=== PATIENT | male | born 1970 | race Caucasian/White ===

== ENCOUNTER 2017-10-09 10:58 | Outpatient (CLI) | payer OTHER ==
--- NOTE | 2017-10-09 12:07 | Ultrasound Report ---
ULTRASOUND LEFT INGUINAL CANAL: 10/09/2017 CLINICAL INDICATION: Pain, swelling. TECHNIQUE: Real-time scanning was performed with sales representative printing paper static images obtained. FINDINGS: Ultrasound of the left inguinal canal demonstrates a left inguinal hernia present, containing fat. The hernia neck measures approximately 5 mm. No bowel herniation is identified at rest or with Valsalva. IMPRESSION: LEFT INGUINAL HERNIA, CONTAINING FAT. TD: 10/09/2017 12:06
== END 2017-10-09 10:59 | disposition home or self-care (01) ==
LOC: DI 10:58
PROVIDERS: ATTEND Nurse Practitioner Family
DX: K40.90 Unilateral inguinal hernia, without obstruction or gangrene, not specified as recurrent (principal)
CPT/HCPCS: 76857

== ENCOUNTER 2017-11-10 07:17 | Day surgery (SDC) | payer OTHER ==
[2017-11-10] MEDS ORDERED: ceFAZolin 2 GM/50 ML 2 GM/50 ML BAG IV ONE (07:43)
[2017-11-10] MEDS ORDERED: BUPIVACAINE 0.5% PF 30 ML VIAL ONE (07:45)
[2017-11-10] MEDS ORDERED: LACTATED RINGERS 1,000 ML IV ONE (08:10)
[2017-11-10] MEDS ORDERED: SODIUM CHLORIDE 0.9% 10 ML ONE (09:50)
[2017-11-10] MEDS ORDERED: ceFAZolin 1 GM VIAL ONE (09:50)
[2017-11-10] MEDS ORDERED: BUPIVACAINE 0.5%-EPI 1:200000 PF 30 ML VIAL ONE (09:52)
[2017-11-10] MEDS ORDERED: BUPIVACAINE 0.5%-EPI 1:200000 PF 10 ML VIAL ONE (09:52)
[2017-11-10] MEDS ORDERED: LIDOCAINE 1% 50 ML MDV ONE (09:53)
[2017-11-10] MEDS ORDERED: BUPIVACAINE 0.5%-EPI 1:200000 PF 30 ML VIAL SUBQ ONE (10:13)
[2017-11-10] MEDS ORDERED: LIDOCAINE 1% 50 ML MDV SUBQ ONE (10:13)
[2017-11-10] MEDS ORDERED: ceFAZolin 1 GM VIAL IR ONE (10:31)
[2017-11-10] MEDS ORDERED: ONDANSETRON 4 MG/2 ML VIAL IVP ONE (11:22)
[2017-11-10] MEDS ORDERED: PROPOFOL 200 MG/20 ML VIAL IVP ONE (11:22)
[2017-11-10] MEDS ORDERED: MIDAZOLAM 2 MG/2 ML VIAL IVP ONE (11:22)
[2017-11-10] MEDS ORDERED: KETOROLAC 30 MG/ML VIAL IVP ONE (11:22)
[2017-11-10] MEDS ORDERED: fentaNYL 100 MCG/2 ML VIAL IVP ONE (11:22)
--- NOTE | 2017-11-10 11:47 | OPERATIVE REPORT ---
DATE OF SERVICE: 11/10/2017 Physician: Sergio Puckett MD PREOPERATIVE DIAGNOSIS: Symptomatic left inguinal hernia. POSTOPERATIVE DIAGNOSIS: Symptomatic sliding indirect left inguinal hernia. PROCEDURE PERFORMED: Open repair of sliding indirect left inguinal hernia with polypropylene mesh. ANESTHESIA: Local plus monitored anesthesia care. SURGEON: Sergio Puckett MD ESTIMATED BLOOD LOSS: Minimal. COMPLICATIONS: None. DRAINS: None. FINDINGS: A small to moderate sized indirect sliding left inguinal hernia was present. The sliding component appeared to be bladder wall. There was no evidence of direct or femoral hernia. INDICATIONS: The patient is a 47-year-old gentleman with a recent onset of a painful reducible left groin bulge. Examination revealed a left inguinal hernia. He was advised to undergo repair using an open technique under local anesthesia with sedation. TECHNIQUE: After informed consent, the patient was taken to the operating room where he was sedated and monitored. Preoperative preparation included application of sequential calf compression device, administration of 2 grams cefazolin intravenously within the hour of the incision. His left groin was clipped prepared with ChloraPrep solution following which a left groin block was instituted using a 50:50 combination of 1% lidocaine plain and 0.5% Marcaine with epinephrine, total of 30 mL of the mixture was used. His left groin was reprepared with ChloraPrep solution and draped in the usual sterile fashion. A transverse incision was made in the skin lines of the left groin beginning above the pubic tubercle and extending laterally for 5 cm. Hemostasis was achieved with electrocautery and 2-0 Vicryl ties. The incision was carried down through subcutaneous tissues until the external oblique aponeurosis was identified, and was incised along the lines of its fibers in such a manner as to open the external ring and expose the internal ring. The spermatic cord was mobilized and encircled with a Katherine drain. The ilioinguinal nerve was divided to avoid injury and entrapment. The cord was dissected, isolating an indirect hernia sac, which was dissected free from surrounding cord structures to the level of the internal ring. It was seen to have a sliding component. The sac was trimmed away from the sliding component, which was then reduced and the resulting peritoneal defect was closed with a continuous 2-0 silk suture, after a finger had been inserted into the peritoneal cavity and a search for direct and femoral hernia was made and none was identified. After the high ligation had been performed, the cord was skeletonized and after hemostasis was assured, the wound was irrigated with antibiotic solution containing 1 gram of cefazolin per liter. A precut slotted polypropylene mesh, which had been soaked in the antibiotic solution, was placed over the inguinal floor and secured in place circumferentially with continuous 2-0 Prolene sutures. Care was taken to avoid excessive tightening of the mesh around the cord at the level of the internal ring. Again, after hemostasis had been assured, the wound was irrigated with antibiotic solution following which wound closure was accomplished in layers using continuous 2-0 Vicryl to reapproximate the external oblique aponeurosis overlying the cord, followed by continuous 3-0 Vicryl for Stuart fascia, followed by 4-0 Monocryl and Dermabond. The procedure was terminated and the patient transferred out of the operating room in satisfactory condition. Sponge and needle counts were correct. No drains were used. TD: 11/10/2017 11:47
[2017-11-10] MEDS ORDERED: oxyCOD/ACETAMIN 5 MG/325 MG TABLET PO ONE (12:38)
[2017-11-10 12:39] VITALS: BP 128/88
== END 2017-11-10 07:18 | disposition home or self-care (01) ==
LOC: SDS 07:17
PROVIDERS: ATTEND Internal Medicine Gastroenterology
PROC: 0YU60JZ Supplement Left Inguinal Region with Synthetic Substitute, Open Approach (ICD-10-PCS; principal; 2017-11-10 08:30)
DX: K40.90 Unilateral inguinal hernia, without obstruction or gangrene, not specified as recurrent (principal)
CPT/HCPCS: 49525; A9270; C1781; J0690; J7120

== ENCOUNTER 2020-07-05 08:13 | Outpatient (CLI) | payer OTHER ==
--- NOTE | 2020-07-05 17:33 | MRI Report ---
PROCEDURE: Lumbar Spine W/O INDICATIONS: LOW BACK PAIN, SEVERE DEGENERATIVE CHANGES TECHNIQUE: Noncontrast sagittal T1 spin echo and T2 fast echo, sagittal STIR, axial T1 and T2 fast spin echo thr ough the lumbar spine. In cases with scoliosis, additional coronal T2 fast spin echo may be performe d. COMPARISON: None. FINDINGS: Image quality: Excellent. Alignment and Curvature: There is normal bony alignment. Bone Marrow: Reactive endplate changes noted adjacent to the L1-L2 disc. No acute vertebral body comp ression fractures. Spinal Cord: Conus medullaris terminates at the L1 level. Visualized cord demonstrates normal signa l and size. Paraspinous Soft Tissues: No paravertebral masses. T12-L1: Loss of disc signal. Mild, diffuse disc bulge. No central stenosis. No neural foraminal narr owing. No neural compression. L1-L2: Loss of disc signal and height. Mild, diffuse disc bulge. Mild narrowing of the central can al. Mild bilateral neural foraminal narrowing. No neural compression. L2-L3: Loss of disc signal. Mild, diffuse disc bulge. Mild narrowing of the central canal. Mild bi lateral neural foraminal narrowing. No neural compression. L3-L4: Loss of disc signal. Mild, diffuse disc bulge. Mild bilateral facet hypertrophy. Mild narrow ing of the central canal. Mild bilateral neural foraminal narrowing. No neural compression. L4-L5: Loss of disc signal. Mild, diffuse disc bulge. Mild bilateral facet hypertrophy. Mild to mod erate narrowing of the central canal. Mild to moderate bilateral neural foraminal narrowing. No neura l compression. L5-S1: Loss of disc signal. Mild bilateral facet hypertrophy. No central stenosis. No neural forami nal narrowing. No neural compression. IMPRESSION: 1. Multilevel degenerative disc disease. 2. Multilevel facet arthropathy. 3. Mild to moderate L4-L5 central canal narrowing. Mild L1-L2, L2-L3 and L3-L4 central canal narrowin g. 4. Mild to moderate bilateral L4-L5 neural foraminal narrowing. Mild bilateral L1-L2, L2-L3 and L3-L4 neural foraminal narrowing. 5. No neural compression. Reviewed by: Ivis Valle MD, PhD on 07/05/2020 5:32 PM PST Approved by: Ivis Valle MD, PhD on 07/05/2020 5:32 PM PST Station ID: [id number]
== END 2020-07-05 08:14 | disposition home or self-care (01) ==
LOC: DI 08:13
PROVIDERS: ATTEND Nurse Practitioner Family
DX: M51.36 Other intervertebral disc degeneration, lumbar region (principal); M48.061 Spinal stenosis, lumbar region without neurogenic claudication
CPT/HCPCS: 72148

== ENCOUNTER 2020-11-08 12:37 | Outpatient (CLI) | payer OTHER | END 2020-11-08 12:38 | disposition home or self-care (01) | LOC: COV 12:37 | PROVIDERS: ATTEND Surgery | DX: Z01.812 Encounter for preprocedural laboratory examination (principal); R10.13 Epigastric pain; Z86.010 Personal history of colon polyps; Z12.11 Encounter for screening for malignant neoplasm of colon; Z92.83 Personal history of failed moderate sedation; Z20.822 Contact with and (suspected) exposure to COVID-19 ==

== ENCOUNTER 2020-11-14 08:51 | Day surgery (SDC) | payer OTHER ==
[2020-11-14] MEDS ORDERED: LACTATED RINGERS 1,000 ML IV ONE ×2 (08:58→13:42)
--- NOTE | 2020-11-14 09:23 | ANESTHESIA ---
Pre-Anesthesia VS, & Labs - Diagnosis dyspepsia, screening, Hx polyps - Procedure EGD, Colonoscopy Vital Signs: Temp Pulse Resp BP Pulse Ox 36.3 C L 76 16 124/96 H 96 11/14/20 08:58 11/14/20 08:58 11/14/20 08:58 11/14/20 08:58 11/14/20 08:58 Height: 5 ft 8 in Weight (kg): 87 kg Body Mass Index: 29.1 BMI Classification: Overweight - NPO >8 hours - Lab Results Lab results reviewed: Yes Home Medications and Allergies Home Medications: Ambulatory Orders Acetaminophen [Tylenol] 650 mg PO Q6H PRN 11/13/20 Diclofenac Sodium 25 mg PO 11/13/20 Omeprazole Magnesium [Prilosec] 10 mg PO 11/13/20 Acetaminophen [Tylenol] 650 mg PO Q6H PRN 11/13/20 Diclofenac Sodium 25 mg PO 11/13/20 Omeprazole Magnesium [Prilosec] 10 mg PO 11/13/20 Allergies/Adverse Reactions: Allergies Allergy/AdvReac Type Severity Reaction Status Date / Time No Known Drug Allergies Allergy Verified 11/05/17 10:32 Anes History & Medical History - Anesthetic History Anesthesia Complications: reports: No previous complications Family history of Anesthesia Complications: Denies Family history of Malignant Hyperthermia: Denies - Medical History Cardiovascular: reports: None Pulmonary: reports: None Gastrointestinal: reports: GERD, Other Urinary: reports: None Musculoskeletal: reports: None Endocrine/Autoimmune: reports: None Skin: reports: None - Surgical History General: reports: Other Exam General: Alert, Oriented x3, Cooperative, No acute distress Dental: WNL Mouth Openin Fingerbreadth Neck Mobility: Normal Mallampati classification: I Respiratory: Lungs clear, Normal breath sounds, No respiratory distress, No accessory muscle use Cardiovascular: Regular rate, Normal S1, Normal S2, No murmurs Plan Anesthesia Type: General, Total IV Consent for Procedure(s) Verified and Reviewed: Yes Code Status: Attempt Resuscitation ASA classification: 1-Healthy patient Is this case an emergency?: No
[2020-11-14] MEDS ORDERED: PROPOFOL 1000 MG/100 ML 1,000 MG/100 ML BOTTLE IV ONE (11:48)
[2020-11-14] MEDS ORDERED: LIDOCAINE-MPF 2% 5 ML VIAL ONE (11:48)
[2020-11-14] MEDS ORDERED: fentaNYL 100 MCG/2 ML VIAL ONE (11:51)
[2020-11-14] MEDS ORDERED: PROPOFOL 200 MG/20 ML VIAL IVP ONE (13:02)
[2020-11-14] MEDS ORDERED: LACTATED RINGERS 100 ML IV ONE (13:08)
[2020-11-14] MEDS: fentaNYL 100 MCG/2 ML VIAL ONE ×2 (13:25→13:35)
[2020-11-14 13:40] LABS: HCT - HEMATOCRIT 46.5 % (42.0-52.0); HGB - HEMOGLOBIN 15.5 g/dL (14.0-18.0); MEAN CORPUSCULAR HEMOGLOBIN 31.2 pg (27.0-31.0); MEAN CORPUSCULAR HGB CONC 33.3 g/dL (32.0-36.0); MEAN CORPUSCULAR VOLUME 93.6 fL (80.0-94.0); MEAN PLATELET VOLUME 10.2 fL (7.4-11.4); RED BLOOD COUNT 4.97 10^6/uL (4.70-6.10); RED CELL DISTRIBUTION WIDTH 13.3 % (12.0-15.0); WHITE BLOOD COUNT 10.2 x10^3/uL (4.8-10.8)
--- NOTE | 2020-11-14 13:46 | XRAY Report ---
PROCEDURE: Chest 1 View X-Ray INDICATIONS: chest pain TECHNIQUE: One view of the chest was acquired. COMPARISON: None FINDINGS: Surgical changes and devices: None. Lungs and pleura: No pleural effusions or pneumothorax. Lungs are clear. Mediastinum: Mediastinal contours appear normal. Heart size is enlarged. Bones and chest wall: No suspicious bony lesions. Overlying soft tissues appear unremarkable. IMPRESSION: No acute pulmonary process. Reviewed by: Tricia Florez MD on 11/14/2020 12:45 PM AKDT Approved by: Tricia Florez MD on 11/14/2020 12:45 PM AKDT Station ID: [id number]
[2020-11-14] MEDS ORDERED: fentaNYL 100 MCG/2 ML VIAL IVP PRN (13:47)
[2020-11-14 13:54] LABS: ALBUMIN 4.4 g/dL (3.2-5.5); ALBUMIN/GLOBULIN RATIO 1.6 (1.0-2.2); BILIRUBIN,TOTAL 1.3 mg/dL (0.2-1.0); CALCIUM 9.2 mg/dL (8.5-10.3); TOTAL PROTEIN 7.2 g/dL (6.7-8.2)
[2020-11-14] MEDS ORDERED: SUCRALFATE 1 GM/10 ML UDC PO ONE (14:00)
[2020-11-14 14:01] LABS: CREATINE KINASE MB 5.2 ng/mL (0.6-6.3)
[2020-11-14 14:03] LABS: TROPONIN I HIGH SENSITIVITY 3.7 ng/L (2.3-19.7)
--- NOTE | 2020-11-14 14:25 | PROVIDER PROGRESS NOTE ---
Progress Note 50-year-old male status post upper and lower endoscopy with upper endoscopy findings as per below. Reporting post procedure chest pain with inspiration. Evaluated by me in PACU. Ordered EKG, chest x-ray, CBC, CMP, and acute cardiac panel. Also reporting some dyspnea however satting 100% on room air. Patient was dosed with Carafate as well as fentanyl with overall improvement in constellation of symptoms.. Upper endoscopy findings: 1. Pylorus was noted for stenosis. Cannot be traversed with upper endoscope. Pdokpyz-pak-jzrpw dilator with guidewire achieved for dilation to 13 mm without any complication. Easily traversed thereafter. 1a. Pylorus intubated achieved second portion of duodenum. No duodenitis at the second portion. Random biopsies obtained. Cold forceps. Hemostatic. 2. Patient was notable for a small area of ulceration and change in the duodenum. This area was multiply biopsied cold forcep. Cold forcep multiple. Focus biopsied. Hemostatic. 3. Antrum was noted for some antritis. Biopsied. Cold forcep. Hemostatic 4. Patient was notable for at least 50 gastric polyps. Unable to remove all of these in 1 sitting. Patient will need interval upper endoscopy to address these specifically with an appropriate amount of time. Will await pathology. 4a. All of these that were greater than 1 cm were performed for hot snare polypectomy and the majority of which were retrieved were possible. Cold forceps. Hemostatic. 4. Retroflexion with no significant hiatal hernia. 5. GE junction without any significant inflammatory changes. Biopsied. Cold forceps. Hemostatic. 6. Esophagus with no stricture, stenosis, or inflammation PHYSICAL EXAM General Appearance: positive: No acute distress Eyes Bilateral: positive: Normal inspection ENT: positive: ENT inspection nml Neck: positive: Nml inspection Respiratory: positive: Chest non-tender, No respiratory distress, Breath sounds nml. negative: Wheezes, Rales, Rhonchi Cardiovascular: positive: Regular rate & rhythm Abdomen: positive: No distention, Other. negative: Guarding, Rebound Extremities: positive: Non-tender, Full ROM, Nml appearance Neurologic/Psychiatric: positive: Oriented x3, CN's nml (2-12) Results Chest x-ray without any acute pulmonary process. Normal white count H&H stable. Remainder of labs including acute cardiac panel all within normal limits including troponin. EKG with no ST changes or other worrisome features. Assessment and plan: By report the patient was feeling improved per the nurse. He had received 2 doses of fentanyl as well as a dose of Carafate. Before I had a chance to reevaluate the patient following additional colonoscopies/endoscopies patient had already been discharged. There was no concern for perforation, acute coronary syndrome, or other respiratory process. Moreover there was no concern for complication as it relates to upper and lower endoscopy, vis a vis perforation. Notably the lower endoscopy was characteristic of only random biopsies with no large polyps. Plan to order Carafate and acid suppression therapy with PPI through [facility]. I do suspect the patient's early satiety and and gastric distention with eating is a consequence of pyloric stenosis and hopefully this will significantly improve with the patient's resultant dilation today.
--- NOTE | 2020-11-14 14:33 | ANESTHESIA POST OP EVALUATION ---
Anesthesia Post Eval - Post Anesthesia Eval Vitals: Last Vital Signs Temp 36.1 C L 11/14/20 14:02 Pulse 16 L 11/14/20 14:02 Resp 16 11/14/20 14:02 BP 149/90 H 11/14/20 14:02 Pulse Ox 97 11/14/20 14:02 CV Function Including HR & BP: Stable Pain Control: Satisfactory Nausea & Vomiting: Negative Mental Status: Baseline Respiratory Status: Airway Patent Hydration Status: Satisfactory Anesthesia Complications: None - Other Details/Therapies Other Details/Therapies: Immediately post procedure. Patient experiencing chest pain. Dr. Cevallos at bedside. CMP, CBC, Cardiac enzymes, EKG and CXR ordered.
[2020-11-14 14:53] VITALS: BP 148/87
== END 2020-11-14 08:52 | disposition home or self-care (01) ==
LOC: SDS 08:51
PROVIDERS: ATTEND Surgery
PROC: 0DBP8ZX Excision of Rectum, Via Natural or Artificial Opening Endoscopic, Diagnostic (ICD-10-PCS; 2020-11-14)
PROC: 0DB98ZX Excision of Duodenum, Via Natural or Artificial Opening Endoscopic, Diagnostic (ICD-10-PCS; 2020-11-14)
PROC: 0DB78ZX Excision of Stomach, Pylorus, Via Natural or Artificial Opening Endoscopic, Diagnostic (ICD-10-PCS; 2020-11-14)
PROC: 0DB48ZX Excision of Esophagogastric Junction, Via Natural or Artificial Opening Endoscopic, Diagnostic (ICD-10-PCS; 2020-11-14)
PROC: 0D778ZZ Dilation of Stomach, Pylorus, Via Natural or Artificial Opening Endoscopic (ICD-10-PCS; 2020-11-14)
PROC: 0DB68ZZ Excision of Stomach, Via Natural or Artificial Opening Endoscopic (ICD-10-PCS; 2020-11-14)
PROC: 0DBB8ZX Excision of Ileum, Via Natural or Artificial Opening Endoscopic, Diagnostic (ICD-10-PCS; principal; 2020-11-14 10:00)
PROC: 0DBE8ZX Excision of Large Intestine, Via Natural or Artificial Opening Endoscopic, Diagnostic (ICD-10-PCS; 2020-11-14 10:00)
DX: Z12.11 Encounter for screening for malignant neoplasm of colon (principal); K21.9 Gastro-esophageal reflux disease without esophagitis; R14.0 Abdominal distension (gaseous); K64.8 Other hemorrhoids; K44.9 Diaphragmatic hernia without obstruction or gangrene; K26.9 Duodenal ulcer, unspecified as acute or chronic, without hemorrhage or perforation; K31.7 Polyp of stomach and duodenum; K31.1 Adult hypertrophic pyloric stenosis; R68.81 Early satiety; K29.60 Other gastritis without bleeding; R07.1 Chest pain on breathing; Z86.010 Personal history of colon polyps; Z92.83 Personal history of failed moderate sedation; R10.13 Epigastric pain; E66.3 Overweight; Z68.29 Body mass index [BMI] 29.0-29.9, adult
CPT/HCPCS: 43239; 43245; 43251; 45380; 71045; 80053; 82550; 82553; 84484; 85027; 93005; A9270; J7120

== ENCOUNTER 2020-11-14 16:34 | Inpatient (IN) | payer OTHER ==
[2020-11-14 17:17] LABS: BASOPHILS % (AUTO) 0.3 %; EOSINOPHILS % (AUTO) 0.3 %; HCT - HEMATOCRIT 47.5 % (42.0-52.0); HGB - HEMOGLOBIN 15.9 g/dL (14.0-18.0); LYMPHOCYTES # (AUTO) 0.9 10^3/uL (1.5-3.5); LYMPHOCYTES % (AUTO) 10.1 %; MEAN CORPUSCULAR HEMOGLOBIN 31.3 pg (27.0-31.0); MEAN CORPUSCULAR HGB CONC 33.5 g/dL (32.0-36.0); MEAN CORPUSCULAR VOLUME 93.5 fL (80.0-94.0); MEAN PLATELET VOLUME 9.9 fL (7.4-11.4); MONOCYTES # (AUTO) 0.4 10^3/uL (0.0-1.0); MONOCYTES % (AUTO) 4.1 %; NEUTROPHILS # (AUTO) 7.8 10^3/uL (1.5-6.6); PLT - PLATELET COUNT 222 10^3/uL (130-450); RED BLOOD COUNT 5.08 10^6/uL (4.70-6.10); RED CELL DISTRIBUTION WIDTH 13.2 % (12.0-15.0); WHITE BLOOD COUNT 9.2 x10^3/uL (4.8-10.8)
[2020-11-14 17:33] LABS: ALBUMIN 4.5 g/dL (3.2-5.5); ALBUMIN/GLOBULIN RATIO 1.9 (1.0-2.2); BILIRUBIN,TOTAL 1.4 mg/dL (0.2-1.0); CALCIUM 9.1 mg/dL (8.5-10.3); TOTAL PROTEIN 6.9 g/dL (6.7-8.2)
[2020-11-14 17:57] LABS: BASOPHILS # (AUTO) 0.1 10^3/uL (0.0-0.1); BASOPHILS % (AUTO) 0.6 %; EOSINOPHILS % (AUTO) 0.3 %; HCT - HEMATOCRIT 45.7 % (42.0-52.0); HGB - HEMOGLOBIN 15.1 g/dL (14.0-18.0); LYMPHOCYTES # (AUTO) 0.8 10^3/uL (1.5-3.5); LYMPHOCYTES % (AUTO) 8.5 %; MEAN CORPUSCULAR HEMOGLOBIN 30.9 pg (27.0-31.0); MEAN CORPUSCULAR VOLUME 93.6 fL (80.0-94.0); MEAN PLATELET VOLUME 9.8 fL (7.4-11.4); MONOCYTES # (AUTO) 0.5 10^3/uL (0.0-1.0); MONOCYTES % (AUTO) 5.9 %; NEUTROPHILS # (AUTO) 7.5 10^3/uL (1.5-6.6); NEUTROPHILS % (AUTO) 84.5 %; PLT - PLATELET COUNT 199 10^3/uL (130-450); RED BLOOD COUNT 4.88 10^6/uL (4.70-6.10); RED CELL DISTRIBUTION WIDTH 13.3 % (12.0-15.0); WHITE BLOOD COUNT 8.8 x10^3/uL (4.8-10.8)
[2020-11-14 18:11] LABS: ALBUMIN 4.2 g/dL (3.2-5.5); ALBUMIN/GLOBULIN RATIO 1.6 (1.0-2.2); BILIRUBIN,TOTAL 1.5 mg/dL (0.2-1.0); CALCIUM 8.9 mg/dL (8.5-10.3); CREATININE 1.1 mg/dL (0.6-1.2); POTASSIUM 3.8 mmol/L (3.5-5.0); TOTAL PROTEIN 6.8 g/dL (6.7-8.2)
--- NOTE | 2020-11-14 18:20 | XRAY Report ---
PROCEDURE: Chest 1 View X-Ray INDICATIONS: Chest Pain TECHNIQUE: One view of the chest was acquired. COMPARISON: Chest xray 11/14/20 FINDINGS: Surgical changes and devices: None. Lungs and pleura: Increased left basilar opacity, progressive since prior exam. Mild left effusion. Mediastinum: Mediastinal contours appear normal. Heart size is enlarged. Bones and chest wall: No suspicious bony lesions. Overlying soft tissues appear unremarkable. IMPRESSION: Progressive left basilar infiltrate suggestive of pneumonia and/or atelectasis. Mild effusion is not ed. Reviewed by: Tricia Florez MD on 11/14/2020 5:19 PM AKDT Approved by: Tricia Florez MD on 11/14/2020 5:19 PM AKDT Station ID: [id number]
[2020-11-14] MEDS ORDERED: PIPERACILLIN/TAZOBACTAM 3.375 GM in SODIUM CHLORIDE 0.9% MINIBAG 100 ML IV STA (18:21)
[2020-11-14] MEDS ORDERED: SODIUM CHLORIDE 0.9% 1,000 ML IV STA (18:27)
--- NOTE | 2020-11-14 18:29 | ED Physician Documentation ---
History of Present Illness - Stated complaint Stated Complaint: POST OP COMPLICATIONS - Chief complaint Chief Complaint: General - Additonal information Additional information: 50-year-old male presents to the emergency department for evaluation of acute left-sided chest pain. He underwent both EGD and colonoscopy today at [facility]. Postprocedure he did report left-sided chest pain. He had an EKG chest x-ray and labs that did not reveal any worrisome finding. He was discharged home but shortly after going home he felt that the chest pain was worsening and he developed rigors and chills therefore he presents here to the emergency department. On exam he appears rather pale. He is tachypneic with respiratory rate in the high 20s and low 30s. He is saturating 92% on room air. Screening chest x-ray here reveals that he is developing a likely left lower lobe pneumonia. CT of the chest is pending. I have briefly consulted with Dr. Cevallos who did the EGD and colonoscopy this afternoon. He reported that this gentleman had significant pyloric stenosis and that aspiration was possible. He requests a CT of the abdomen with Gastrografin as well as to initiate IV antibiotics. lactate and blood cultures are pending Review of Systems Constitutional: reports: Fever, Chills, Myalgias Eyes: reports: Reviewed and negative Ears: reports: Reviewed and negative Nose: reports: Reviewed and negative Throat: reports: Reviewed and negative Cardiac: reports: Chest pain / pressure. denies: Palpitations Respiratory: reports: Dyspnea, Cough GI: reports: Abdominal Pain, Nausea, Vomiting : denies: Dysuria, Frequency, Hesitancy Skin: denies: Rash, Lesions Musculoskeletal: reports: Reviewed and negative Neurologic: reports: Reviewed and negative PD PAST MEDICAL HISTORY - Past Medical History Past Medical History: Yes Cardiovascular: None Respiratory: None Endocrine/Autoimmune: None GI: GERD, Other : None HEENT: None Psych: Anxiety, Post traumatic stress disorder Musculoskeletal: None Derm: None - Past Surgical History Past Surgical History: No General: Other - Present Medications Home Medications: Ambulatory Orders Medication Instructions Recorded Confirmed Acetaminophen [Tylenol] 650 mg PO Q6H PRN 11/13/20 11/13/20 Diclofenac Sodium 25 mg PO 11/13/20 Omeprazole Magnesium [Prilosec] 10 mg PO 11/13/20 - Allergies Allergies/Adverse Reactions: Allergies Allergy/AdvReac Type Severity Reaction Status Date / Time No Known Drug Allergies Allergy Verified 11/14/20 16:48 - Social History Does the pt smoke?: No Smoking Status: Never smoker Does the pt drink ETOH?: Yes Does the pt have substance abuse?: No - Immunizations Immunizations are current?: Yes - POLST Patient has POLST: No PD ED PE EXPANDED - General General: Alert, Lethargic - Neck Neck: Supple w/out meningeal sx. No: Adenopathy - Cardiac Cardiac: Tachy, Radial strong equal, Pedal strong equal, Cap refill < 2 sec - Respiratory Respiratory: Clear to ausultation ruth ann. No: Distress, Labored - Abdomen Abdomen: Normal Bowel sounds, Tender to palpation (Generally tender abdomen without guarding or rebound. Nonfocal.). No: Rebound, Guarding - Derm Derm: Pale, Diaphoretic - Extremities Extremities: Normal. No: Deformity, Tenderness - Neuro Neuro: Alert and Oriented X 3, CNII-XII intact - GCS Eye Opening: Spontaneous Motor: Obeys Commands Verbal: Oriented Total: 15 Results - Vitals Vitals: Vital Signs - 24 hr 11/14/20 11/14/20 11/14/20 16:50 17:36 19:36 Temperature 38.1 C H Heart Rate 122 H 101 H 107 H Respiratory 24 31 H 24 Rate Blood Pressure 115/83 H 95/69 108/77 O2 Saturation 92 88 L 93 11/14/20 20:04 Temperature Heart Rate 104 H Respiratory 28 H Rate Blood Pressure 107/60 O2 Saturation 98 Oxygen O2 Source Room air - Labs Labs: Laboratory Tests 11/14/20 11/14/20 11/14/20 17:10 17:10 17:10 WBC 9.2 RBC 5.08 Hgb 15.9 Hct 47.5 MCV 93.5 MCH 31.3 H MCHC 33.5 RDW 13.2 Plt Count 222 MPV 9.9 Neut # (Auto) 7.8 H Lymph # (Auto) 0.9 L Vermillion # (Auto) 0.4 Eos # (Auto) 0.0 Baso # (Auto) 0.0 Absolute Nucleated RBC 0.00 Nucleated RBC % 0.0 Sodium 141 Potassium 4.0 Chloride 106 Carbon Dioxide 27 Anion Gap 8.0 BUN 18 Creatinine 1.0 Estimated GFR (MDRD) 78 L Glucose 119 H Lactic Acid Calcium 9.1 Total Bilirubin 1.4 H AST 29 ALT 29 Alkaline Phosphatase 55 Troponin I High Sens 3.4 Total Protein 6.9 Albumin 4.5 Globulin 2.4 Albumin/Globulin Ratio 1.9 Lipase 37 11/14/20 11/14/20 11/14/20 17:51 17:51 18:40 WBC 8.8 RBC 4.88 Hgb 15.1 Hct 45.7 MCV 93.6 MCH 30.9 MCHC 33.0 RDW 13.3 Plt Count 199 MPV 9.8 Neut # (Auto) 7.5 H Lymph # (Auto) 0.8 L [place] # (Auto) 0.5 Eos # (Auto) 0.0 Baso # (Auto) 0.1 Absolute Nucleated RBC 0.00 Nucleated RBC % 0.0 Sodium 140 Potassium 3.8 Chloride 105 Carbon Dioxide 26 Anion Gap 9.0 BUN 19 Creatinine 1.1 Estimated GFR (MDRD) 70 L Glucose 124 H Lactic Acid 3.0 H* Calcium 8.9 Total Bilirubin 1.5 H AST 28 ALT 27 Alkaline Phosphatase 53 Troponin I High Sens Total Protein 6.8 Albumin 4.2 Globulin 2.6 Albumin/Globulin Ratio 1.6 Lipase 33 11/14/20 18:40 WBC RBC Hgb Hct MCV MCH MCHC RDW Plt Count MPV Neut # (Auto) Lymph # (Auto) Vermillion # (Auto) Eos # (Auto) Baso # (Auto) Absolute Nucleated RBC Nucleated RBC % Sodium Potassium Chloride Carbon Dioxide Anion Gap BUN Creatinine Estimated GFR (MDRD) Glucose Lactic Acid Calcium Total Bilirubin AST ALT Alkaline Phosphatase Troponin I High Sens 3.5 Total Protein Albumin Globulin Albumin/Globulin Ratio Lipase - Rads (name of study) CT abd pelv w Radiology: Final report received (Left basilar consolidation presumably aspiration and/or pneumonia. Nonobstructive to minor right renal calculus. No definitive bowel wall thickening or intraperitoneal air to suggest bowel perforation) CT chest w Radiology: Final report received (Left basilar left upper lobe consolidation and scattered groundglass opacities which could reflect aspiration and/or pneumonia.) PD MEDICAL DECISION MAKING - ED course Complexity details: reviewed results, re-evaluated patient, d/w patient ED course: 50-year-old male presents the emergency department for evaluation of left chest pain. He underwent EGD and colonoscopy today with our surgeon Dr. Cevallos. The most significant finding during the procedure was pyloric stenosis as well as at least 50 stomach polyps. Shortly after his EGD was completed and patient was in PACU he complained of left chest pain. EKG screening labs and chest x-ray did not reveal any acute abnormalities and he was discharged home. Once going home he had worsening chest pain with fevers and myalgias and he returns to the emergency department. However chest x-ray completed just a few hours after the 1 and PACU demonstrates development of a left lower lobe pneumonia. This case was discussed with Dr. Cevallos on-call for surgery. He requested CTA of the abdomen and pelvis with contrast to rule out any perforative events. Reassuringly there is no findings on CAT scan of gastric perforation. The CT of the chest is consistent with an aspiration pneumonia. Patient was noted to have a mild lactate elevation of 3. 2500 L of crystalloid was ordered as well as Zosyn. Blood cultures are pending. Given the findings of aspiration pneumonia he does meet the criteria for sepsis and thus will be admitted to our hospitalist for further evaluation. Case was discussed with Dr. De Leon. - Sepsis Event Sepsis Onset Date: 11/14/20 Current Stage of Sepsis: Sepsis Initial Hypotension: Not hypotensive Possible source of Sepsis: Pulmonary Mental/Cognitive Status: Alert/Oriented X3, Normal for patient Reason for not giving 30ml/kg crystalloid fluids: Not in septic shock Capillary refill: Less than 2 seconds Peripheral Pulse Strength: 2+ Slightly Diminished Peripheral Pulse Location: Pedal Bedside ultrasound performed: No Sepsis Comment: likely aspiration pna following EGD earlier this afternoon. No leukocytosis. Lactate elevated at 3. 2500 ml of crystalloid ordered. no hypotension, though pt is tachycardic. Zosyn ordered following blood cultures X 2 Departure - Departure Disposition: 66 [facility] DC/Xfer Clinical Impression: Pyloric stenosis Aspiration pneumonia Qualifiers: Aspiration pneumonia type: due to anesthesia during puerperium Laterality: left Lung location: lower lobe of lung Qualified Code(s): O89.01 - Aspiration pneumonitis due to anesthesia during the puerperium Discharge Date/Time: 11/14/20 21:10
[2020-11-14] MEDS ORDERED: IOPAMIDOL-300 100 ML VIAL ONE (18:51)
[2020-11-14] MEDS ORDERED: SODIUM CHLORIDE 0.9% 2,585.49 ML IV STA (19:14)
--- NOTE | 2020-11-14 19:50 | CT Report ---
PROCEDURE: CHEST W INDICATIONS: egd; left sided chest pain; ? aspiration CONTRAST: IV CONTRAST: Isovue 300 ml: 100 PO CONTRAST: *NO PO CONTRAST TECHNIQUE: After the administration of intravenous contrast, 5 mm thick sections acquired from the pulmonary api tammi to the posterior costophrenic angles. 7 mm thick coronal MIP reformats were acquired. For radia tion dose reduction, the following was used: automated exposure control, adjustment of mA and/or kV according to patient size. COMPARISON: None. FINDINGS: CHEST: Lungs: Consolidation present within the left lung base, and patchy consolidative and groundglass opac ity seen in left upper lobe. There is streaky consolidative opacity present within the right lung bas e. Pleura: No pleural effusion or pneumothorax. Heart: Normal Lymph nodes: Normal Thyroid: Negative Aorta: Normal Pulmonary arteries: Normal Esophagus: Normal Bones: Diffuse spondolytic changes and facet arthropathy. Moderate anterior wedging of T12, which is technically age indeterminate and could be physiologic. Upper abdomen: Nonobstructive 2 mm right renal calculus. Hepatic foci statistically representing cyst s although technically indeterminate due to small size. IMPRESSION: Left basilar, left upper lobe consolidation and scattered groundglass opacities, which could reflect aspiration and/or pneumonia. Please correlate clinically. If there is persistent clinical diagnostic uncertainty, recommend short interval radiographic follow-up after treatment for further assessment. Additional chronic and incidental findings as above. Reviewed by: Galo Dill MD on 11/14/2020 7:48 PM PDT Approved by: Galo Dill MD on 11/14/2020 7:48 PM PDT Station ID: [id number]
--- NOTE | 2020-11-14 19:55 | CT Report ---
PROCEDURE: Abdomen/Pelvis W INDICATIONS: recent EGD; left sided chest pain; r/o perforation CONTRAST: IV CONTRAST: Isovue 300 ml: 100 PO CONTRAST: *NO PO CONTRAST TECHNIQUE: After the administration of IV contrast, 5 mm thick sections acquired from the diaphragms to the symp hysis. 5 mm thick coronal and sagittal reformats were acquired. For radiation dose reduction, the f ollowing was used: automated exposure control, adjustment of mA and/or kV according to patient size. COMPARISON: CT chest dated same day. FINDINGS: ABDOMEN: Lung bases: Left basilar consolidation, which is better seen on the comparison CT chest dated same da y. Liver: Hepatic foci statistically representing cysts although technically indeterminate due to small size. Spleen: Normal Gallbladder: Negative Bile ducts: Normal Pancreas: Normal Adrenals: Normal. Kidneys: Nonobstructive 2 mm right renal calculus. No hydronephrosis. Stomach: Normal. Bowel: Normal. Other: No free fluid or air. Abdominal nodes: Normal Aorta: Normal. IVC: Normal. Ventral wall: Normal. PELVIS: Bladder: Normal. Pelvic nodes: Normal. Inguinal: Tiny bilateral fat-containing inguinal hernias. Bones: Mild L1 anterior wedging. IMPRESSION: Left basilar consolidation, presumably aspiration and/or pneumonia. Nonobstructive 2 minor right renal calculus. Normal appendix No definite bowel wall thickening or intraperitoneal free air to suggest bowel perforation. Reviewed by: Galo Rodriguez MD on 11/14/2020 7:53 PM PDT Approved by: Galo Rodriguez MD on 11/14/2020 7:53 PM PDT Station ID: [id number]
[2020-11-14] MEDS ORDERED: PANTOPRAZOLE 80 MG in SODIUM CHLORIDE 0.9% 100ML 100 ML IV STA (20:13)
[2020-11-14] MEDS ORDERED: SODIUM CHLORIDE FLUSH 0.9% 10 ML SYRINGE IVP PRN (20:28)
--- NOTE | 2020-11-14 20:41 | HISTORY & PHYSICAL EXAMINATION ---
Chief Complaint - Chief Complaint Chief Complaint: Chills and shakes History of Present Illness - Admitted From Admitted From:: Home - History Obtained From Records Reviewed: Yes History obtained from: Patient, ER Physician, General Surgeon, EMR - History of Present Illness HPI Comment/Other: This is a pleasant 50-year-old male with a past medical history significant for chronic back pain who presents today complaining of chills and shakes. He st ates that he woke up in his usual state of health this morning. He had an outpatient endoscopy and colonoscopy this morning for bloating that has been present for many years. After both of these procedures, he developed chest pain while in the PACU and a chest x-ray was obtained as well as labs which were unremarkable. He was discharged home but states that after he went home, he developed severe shakes and chills as well as ongoing chest pain and so he came back to the emergency department. He tells me he felt short of breath after the procedure but currently feels much improved. He has no cough. He still has a little left-sided chest pain but it is only present with deep inspiration. Reports no nausea or vomiting. No abdominal pain. He reports he takes no medication except for [id number] lidocaine for back pain and occasional ibuprofen. In the emergency department, he was found to be febrile with a temperature of 38.1 C. His heart rate was in the 110s. He was normotensive. He was tachypneic with respiratory rate in the mid 20s but he was saturating 98% on room air. Labs were significant for normal white count. D-dimer is less than 200. His lactic acid was elevated at 3.0. Chest x-ray revealed a left lower lobe infiltrate which was not present on prior chest x-ray from earlier today. He also underwent a CT of the chest as well as abdomen and pelvis which also showed the left lower lobe infiltrate and no acute abnormalities in the abdomen. He received a liter of IV fluids and Zosyn IV in the emergency department. Given the above findings, medicine was consulted for admission. History - Past Medical History Cardiovascular: reports: None Respiratory: reports: None Endocrine/Autoimmune: reports: None GI: reports: GERD, Ulcers, Other (Pyloric stenosis. Gastric polyps.) : reports: None HEENT: reports: None Psych: reports: Anxiety, Post traumatic stress disorder Musculoskeletal: reports: Chronic back pain Derm: reports: None MRSA Hx?: No - Past Surgical History General: reports: EGD, Other (Umbilical hernia repair. Left inguinal hernia repair.) - Family & Social History Family History: Mother: , CVA/TIA, Father: Alive and Well Family History Comment/Other: He reports his mother from a stroke. She had a history of uterine cancer. His father is alive and well. He tells me there is a family history of gastric, breast cancer, colon cancer on his father side. Living arrangement: At home Living Situation: With spouse/s.o. Social History Notes: He lives at home with his . 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 He has never smoked. He will occasionally have an alcoholic beverage. - POLST Patient has POLST: No Meds/Allgy - Home Medications Home Medications: Ambulatory Orders Medication Instructions Recorded Confirmed Acetaminophen [Tylenol] 650 mg PO Q6H PRN 11/13/20 11/13/20 Diclofenac Sodium 25 mg PO 11/13/20 Omeprazole Magnesium [Prilosec] 10 mg PO 11/13/20 - Allergies Allergies/Adverse Reactions: Allergies Allergy/AdvReac Type Severity Reaction Status Date / Time No Known Drug Allergies Allergy Verified 11/14/20 16:48 Review of Systems - Constitutional Constitutional: reports: Chills. denies: Fatigue, Fever, Poor appetite - Ears, Nose & Throat Ears, Nose & Throat: denies: Nasal discharge, Sore throat - Cardiovascular Cariovascular: reports: Chest pain (With inspiration). denies: Edema, Lighthea dedness, Syncope, Exertional dyspnea, Decr. exercise tolerance - Respiratory Respiratory: reports: SOB at rest, SOB with exertion. denies: Cough, Sputum production - Gastrointestinal Gastrointestinal: reports: Bloating. denies: Abdominal pain, Nausea, Vomiting, Poor appetite - Genitourinary Genitourinary: denies: Dysuria, Frequency, Urgency, Hematuria - Musculoskeletal Musculoskeletal: reports: Back pain - Integumentary Integumentary: denies: Rash - Neurological Neurological: denies: General weakness, Focal weakness, Dizziness - Hematologic/Lymphatic Hematologic/Lymphatic: denies: Bleeding tendencies - All Other Systems All Other Systems: reports: Reviewed and negative Prior Level of Functionality: He is independent with his ADLs. Exam - Vital Signs Reviewed Vital Signs: Yes Vital Signs: Vital Signs x48h Temp Pulse Resp BP Pulse Ox 11/14/20 20:04 104 H 28 H 107/60 98 11/14/20 19:36 107 H 24 108/77 93 11/14/20 17:36 101 H 31 H 95/69 88 L 11/14/20 16:50 38.1 C H 122 H 24 115/83 H 92 - Physical Exam General Appearance: positive: No acute distress, Alert Eyes Bilateral: positive: Normal inspection, Conjunctivae nml ENT: positive: ENT inspection nml Neck: positive: Nml inspection Respiratory: positive: No respiratory distress, Rhonchi (Faint rhonci in left lower lung field.), Other (He is not in distress but he is tachypneic.). negative: Wheezes, Rales Cardiovascular: positive: No murmur, Tachycardia. negative: Irregularly irregular, Systolic murmur Abdomen: positive: Non-tender, No distention. negative: Tenderness, Guarding, Rebound Skin: positive: Warm, Dry Extremities: positive: Full ROM, No pedal edema Neurologic/Psychiatric: positive: Oriented x3, Motor nml. negative: Disoriented to person, Disoriented to place, Disoriented to time Sepsis Event Note (H) - Evaluation Current Stage of Sepsis: Sepsis Possible source of Sepsis: positive: Pulmonary - Sepsis Criteria Sepsis Criteria: Recorded Temperature greater than 38.3C or Less than 36C, Recorded Heart Rate greater than 90 bpm, Metabolic: lactate > 2 mmol/L Conclusion/Plan - Problem List (1) Sepsis Conclusion/Plan: He meets sepsis criteria given the low-grade fever, elevated lactic acid. This is secondary to the chemical/aspiration pneumonitis. Although there is low suspicion for bacterial infection, we will continue empiric IV Zosyn given his low-grade fever and elevated lactic acid. We will follow-up blood cultures. Daily CBC. (2) Aspiration pneumonitis Conclusion/Plan: His presentation is more consistent with pneumonitis rather than true bacterial aspiration pneumonia. He has a low-grade fever and his chest x-ray now reveals a left lower lobe infiltrate which was not present just a few hours ago. He likely aspirated gastric contents while he was in the left lateral decubitus position. Although this is likely pneumonitis, we will continue him on empiric IV antibiotics with Zosyn given elevated lactic acid and his low-grade fever. We will assess on a daily basis the continued need for antibiotics. We will monitor his respiratory status closely although at this time he is not hypoxic. (3) Pleuritic chest pain Conclusion/Plan: This is secondary to the aspiration pneumonitis. His EKG is nonischemic and his troponin is within normal limits. His D-dimer is also some 200 so low suspicion for pulmonary embolism. This is already improving and should resolve as the pneumonitis resolves. (4) Pyloric stenosis Conclusion/Plan: This was noted today during the endoscopy and was likely contributing to his feeling of early satiety and bloating. This was dilated by general surgery. We will place him on a clear liquid diet as tolerated. (5) Gastric polyps Conclusion/Plan: Endoscopy today revealed over 50 gastric polyps. All of the polyps greater than 1 cm were removed. Pathology will need to be followed up and he will need outpatient follow-up with general surgery or his primary care provider. (6) Duodenal ulceration Conclusion/Plan: This was evident on EGD today. He has been started on Protonix 40 mg daily. I have discussed with him the importance of avoiding NSAIDs. - Lab Results Lab results reviewed: Yes Fish Bones: 11/14/20 17:51 11/14/20 17:51 - Diagnostic Imaging Results Diagnostic Imaging Results: positive: Final report reviewed Core Measures - Anticipated LOS I expect patient to be DC'd or transferred within 96 hours.: Yes - Issues Hospital Issues and Management Plan: 50-year-old male who presents after an endoscopy earlier today with left-sided chest pain as well as rigors. He is found to have aspiration/chemical pneumonitis. We will admit him for IV Zosyn and to monitor his respiratory status. - DVT/VTE - Prophylaxis VTE/DVT Device ordered at admit?: Yes VTE/DVT Prophylaxis med ordered at admit?: Yes
[2020-11-14] MEDS ORDERED: LACTATED RINGERS 1,000 ML IV ONE (20:46)
--- OUTSIDE RECORDS SUMMARY | 2020-11-14 20:56 | EXTERNAL MEDICAL SUMMARY RPT | Continuity of Care Document ---
:1970 Demographics Phone Unavailable Preferred Language Unknown Marital Status Unknown Advent Affiliation Unknown Race Unknown Ethnic Group Unknown Author Organization [facility] Address [address] [place] [address] Phone Social History date description facility [phone]
[2020-11-14 22:16] LABS: B. PARAPERTUSSIS- RESP PCR PAN NOT DETECTED; B. PERTUSSIS- RESP PCR PANEL NOT DETECTED; C. PNEUMONIAE- RESP PCR PANEL NOT DETECTED; CORONAVIRUS 229E-RESP PCR NOT DETECTED; CORONAVIRUS HKU1-RESP PCR NOT DETECTED; CORONAVIRUS NL63-RESP PCR NOT DETECTED; CORONAVIRUS OC43-RESP PCR NOT DETECTED; HUMAN METAPNEUMOVIRUS NOT DETECTED; INFLUENZA A- RESP PCR PANEL NOT DETECTED; INFLUENZA B - RESP PCR PANEL NOT DETECTED; M. PNEUMONIAE- RESP PCR PANEL NOT DETECTED; PARAINFLUENZA VIRUS 1 NOT DETECTED; PARAINFLUENZA VIRUS 2 NOT DETECTED; PARAINFLUENZA VIRUS 3 NOT DETECTED; PARAINFLUENZA VIRUS 4 NOT DETECTED; RHINOVIRUS/ENTEROVIRUS NOT DETECTED; RSV- RESP PCR PANEL NOT DETECTED; SARS-CoV-2 -RESP PCR PANEL NOT DETECTED
[2020-11-14] MEDS ORDERED: IOPAMIDOL-300 100 ML VIAL IVP ONE (22:22)
[2020-11-14] MEDS: LACTATED RINGERS 1,000 ML IV SCH (22:37)
[2020-11-15 01:17] LABS: LACTIC ACID, VENOUS 2.8 mmol/L (0.5-2.2)
[2020-11-15] MEDS: SODIUM CHLORIDE FLUSH 0.9% 10 ML SYRINGE IVP SCH ×3 (01:36→17:24)
[2020-11-15] MEDS: PIPERACILLIN/TAZOBACTAM 3.375 GM in SODIUM CHLORIDE 0.9% MINIBAG 100 ML IV SCH ×3 (04:01→20:01)
[2020-11-15 04:31] LABS: EOSINOPHILS % (AUTO) 0.1 %
[2020-11-15 04:36] LABS: BASOPHILS % (AUTO) 0.3 %; HCT - HEMATOCRIT 38.9 % (42.0-52.0); HGB - HEMOGLOBIN 12.7 g/dL (14.0-18.0); LYMPHOCYTES # (AUTO) 1.3 10^3/uL (1.5-3.5); LYMPHOCYTES % (AUTO) 9.2 %; MEAN CORPUSCULAR HGB CONC 32.6 g/dL (32.0-36.0); MEAN CORPUSCULAR VOLUME 94.9 fL (80.0-94.0); MONOCYTES # (AUTO) 1.3 10^3/uL (0.0-1.0); MONOCYTES % (AUTO) 9.5 %; NEUTROPHILS # (AUTO) 11.4 10^3/uL (1.5-6.6); NEUTROPHILS % (AUTO) 80.3 %; PLT - PLATELET COUNT 182 10^3/uL (130-450); RED CELL DISTRIBUTION WIDTH 13.3 % (12.0-15.0); WHITE BLOOD COUNT 14.2 x10^3/uL (4.8-10.8)
[2020-11-15 04:41] LABS: CALCIUM 8.4 mg/dL (8.5-10.3); MAGNESIUM 1.9 mg/dL (1.7-2.8); POTASSIUM 3.6 mmol/L (3.5-5.0)
[2020-11-15] MEDS: ACETAMINOPHEN 325 MG TABLET PO PRN ×3 (06:34→20:42)
[2020-11-15] MEDS ORDERED: PANTOPRAZOLE 40 MG TABLET PO SCH (07:00)
[2020-11-15] MEDS ORDERED: ENOXAPARIN 40 MG/0.4 ML SYRINGE SUBQ SCH (09:00)
--- NOTE | 2020-11-15 10:47 | PHARMACY PROGRESS NOTE ---
- Best Possible Medication History Admit Date and Time: 11/14/202027 Processed by: Pharmacy Medication History completed: Yes Patient Interview: Completed Secondary Source(s): Physician records, Pharmacy records, Insurance records (PATIENT INTERVIEWED BY PHARMACY. PATIENT ABLE TO CONFIRM HOME MEDICATIONS ) As the person ultimately responsible for medication therapy, providers are able to order a medication from an existing home medication list in [facility] via the "Reconcile Routine" prior to Confirmation of that medication by postal support employee. Such practice is discouraged except when the physician, in their clinical judgment, deems that a medical need exists for a medication without regard to previous use.
[2020-11-15] MEDS: LACTATED RINGERS 1,000 ML IV SCH (10:56)
--- NOTE | 2020-11-15 16:20 | PROVIDER PROGRESS NOTE ---
Subjective - Prog Note Date Prog Note Date: 11/15/20 Prog Note Time: 16:18 - Subjective Pt reports feeling: Improved Subjective: But he still having pleuritic chest pain when he takes a deep breath. Asked to have his diet advanced. He was really hungry. We advanced him to a regular diet and he has been eating well. I reviewed the CT of the chest with radiology to make sure we were not missing mediastinitis or an esophageal rupture. After careful review radiology does feel that it is pneumonia and not an esophageal tear with leak. Current Medications - Current Medications Current Medications: Active Medications Acetaminophen (Acetaminophen 325 Mg Tablet) 650 mg PO Q4HR PRN PRN Reason: Pain 1 to 4 Last Admin: 11/15/20 16:14 Dose: 650 mg Documented by: Enoxaparin Sodium (Enoxaparin 40 Mg/0.4 Ml Syringe) 40 mg SUBQ DAILY [facility] Last Admin: 11/15/20 09:04 Dose: 40 mg Documented by: Piperacillin Sod/Tazobactam (Sod 3.375 gm/ Sodium Chloride) 100 mls @ 25 mls/hr IV Q8H [facility] Last Admin: 11/15/20 12:20 Dose: 25 mls/hr Documented by: Pantoprazole Sodium (Pantoprazole 40 Mg Tablet) 40 mg PO QDAC [facility] Last Admin: 11/15/20 06:34 Dose: 40 mg Documented by: Sodium Chloride (Sodium Chloride Flush 0.9% 10 Ml Syringe) 10 ml IVP PRN PRN PRN Reason: NEEDED PER PROVIDER ORDERS Sodium Chloride (Sodium Chloride Flush 0.9% 10 Ml Syringe) 10 ml IVP 0100,0900,1700 [facility] Last Admin: 11/15/20 09:04 Dose: Not Given Documented by: Acetaminophen [Tylenol] 650 mg PO Q6H PRN 11/13/20 Valacyclovir HCl [Valtrex] 500 mg PO DAILY 11/15/20 Objective - Vital Signs/Intake & Output Reviewed Vital Signs: Yes Vital Signs: Vital Signs x48h Temp Pulse Resp BP Pulse Ox 11/15/20 15:59 37.6 C 91 20 126/91 H 99 11/15/20 12:22 37.1 C 84 20 132/90 H 97 11/15/20 08:54 38.0 C H 84 18 103/68 97 Intake & Output: Intake & Output 11/12/20 11/13/20 11/14/20 11/15/20 23:59 23:59 23:59 23:59 Intake Total 3871.49 2115.000 Output Total 550 Balance 3321.49 2115.000 - Objective General Appearance: positive: No acute distress, Alert Eyes Bilateral: positive: PERRL ENT: positive: Pharynx nml Neck: positive: No JVD. negative: Stiff neck Respiratory: positive: Chest non-tender, No respiratory distress, Wheezes (left lung). negative: Rales, Rhonchi Cardiovascular: positive: Regular rate & rhythm. negative: Systolic murmur, Gallop/S4 Abdomen: positive: Non-tender, No organomegaly, Nml bowel sounds, No distention Skin: positive: Warm, Dry Extremities: positive: Non-tender, No pedal edema Neurologic/Psychiatric: positive: Oriented x3, CN's nml (2-12), Motor nml, Sensation nml - Lab Results Fish Bones: 11/15/20 04:25 11/15/20 04:25 Other Labs: Lab Results x24hrs 11/15/20 11/15/20 11/15/20 Range/Units 04:25 04:25 04:25 WBC 14.2 H (4.8-10.8) x10^3/uL RBC 4.10 L (4.70-6.10) 10^6/uL Hgb 12.7 L (14.0-18.0) g/dL Hct 38.9 L (42.0-52.0) % MCV 94.9 H (80.0-94.0) fL MCH 31.0 (27.0-31.0) pg MCHC 32.6 (32.0-36.0) g/dL RDW 13.3 (12.0-15.0) % Plt Count 182 (130-450) 10^3/uL MPV 10.0 (7.4-11.4) fL Neut # (Auto) 11.4 H (1.5-6.6) 10^3/uL Lymph # (Auto) 1.3 L (1.5-3.5) 10^3/uL [place] # (Auto) 1.3 H (0.0-1.0) 10^3/uL Eos # (Auto) 0.0 (0.0-0.7) 10^3/uL Baso # (Auto) 0.0 (0.0-0.1) 10^3/uL Absolute Nucleated RBC 0.00 x10^3/uL Nucleated RBC % 0.0 /100WBC Sodium 140 (135-145) mmol/L Potassium 3.6 (3.5-5.0) mmol/L Chloride 110 (101-111) mmol/L Carbon Dioxide 24 (21-32) mmol/L Anion Gap 6.0 (6-13) BUN 15 (6-20) mg/dL Creatinine 1.0 (0.6-1.2) mg/dL Estimated GFR (MDRD) 78 L (>89) Glucose 115 H (70-100) mg/dL Lactic Acid 1.2 (0.5-2.2) mmol/L Calcium 8.4 L (8.5-10.3) mg/dL Magnesium 1.9 (1.7-2.8) mg/dL Total Bilirubin (0.2-1.0) mg/dL AST (10-42) IU/L ALT (10-60) IU/L Alkaline Phosphatase (42-121) IU/L Troponin I High Sens (2.3-19.7) ng/L Total Protein (6.7-8.2) g/dL Albumin (3.2-5.5) g/dL Globulin (2.1-4.2) g/dL Albumin/Globulin Ratio (1.0-2.2) Lipase (22-51) U/L Nasal Adenovirus (PCR) Nasal B. parapertussis DNA (PCR) Nasal Coronavir 229E PCR Nasal Coronavir HKU1 PCR Nasal Coronavir NL63 PCR Nasal Coronavir OC43 PCR Nasal Enterovir/Rhinovir PCR Nasal Influenza B PCR Nasal Influenza A PCR Nasal Parainfluen 1 PCR Nasal Parainfluen 2 PCR Nasal Parainfluen 3 PCR Nasal Parainfluen 4 PCR Nasal RSV (PCR) Nasal B.pertussis DNA PCR Nasal C.pneumoniae (PCR) Hema Human Metapneumo PCR Nasal M.pneumoniae (PCR) Nasal SARS-CoV-2 (PCR) 11/15/20 11/14/20 11/14/20 Range/Units 01:00 21:21 20:48 WBC (4.8-10.8) x10^3/uL RBC (4.70-6.10) 10^6/uL Hgb (14.0-18.0) g/dL Hct (42.0-52.0) % MCV (80.0-94.0) fL MCH (27.0-31.0) pg MCHC (32.0-36.0) g/dL RDW (12.0-15.0) % Plt Count (130-450) 10^3/uL MPV (7.4-11.4) fL Neut # (Auto) (1.5-6.6) 10^3/uL Lymph # (Auto) (1.5-3.5) 10^3/uL [place] # (Auto) (0.0-1.0) 10^3/uL Eos # (Auto) (0.0-0.7) 10^3/uL Baso # (Auto) (0.0-0.1) 10^3/uL Absolute Nucleated RBC x10^3/uL Nucleated RBC % /100WBC Sodium (135-145) mmol/L Potassium (3.5-5.0) mmol/L Chloride (101-111) mmol/L Carbon Dioxide (21-32) mmol/L Anion Gap (6-13) BUN (6-20) mg/dL Creatinine (0.6-1.2) mg/dL Estimated GFR (MDRD) (>89) Glucose (70-100) mg/dL Lactic Acid 2.8 H 2.0 (0.5-2.2) mmol/L Calcium (8.5-10.3) mg/dL Magnesium (1.7-2.8) mg/dL Total Bilirubin (0.2-1.0) mg/dL AST (10-42) IU/L ALT (10-60) IU/L Alkaline Phosphatase (42-121) IU/L Troponin I High Sens (2.3-19.7) ng/L Total Protein (6.7-8.2) g/dL Albumin (3.2-5.5) g/dL Globulin (2.1-4.2) g/dL Albumin/Globulin Ratio (1.0-2.2) Lipase (22-51) U/L Nasal Adenovirus (PCR) NOT DETECTED Nasal B. parapertussis DNA (PCR) NOT DETECTED Nasal Coronavir 229E PCR NOT DETECTED Nasal Coronavir HKU1 PCR NOT DETECTED Nasal Coronavir NL63 PCR NOT DETECTED Nasal Coronavir OC43 PCR NOT DETECTED Nasal Enterovir/Rhinovir PCR NOT DETECTED Nasal Influenza B PCR NOT DETECTED Nasal Influenza A PCR NOT DETECTED Nasal Parainfluen 1 PCR NOT DETECTED Nasal Parainfluen 2 PCR NOT DETECTED Nasal Parainfluen 3 PCR NOT DETECTED Nasal Parainfluen 4 PCR NOT DETECTED Nasal RSV (PCR) NOT DETECTED Nasal B.pertussis DNA PCR NOT DETECTED Nasal C.pneumoniae (PCR) NOT DETECTED Hema Human Metapneumo PCR NOT DETECTED Nasal M.pneumoniae (PCR) NOT DETECTED Nasal SARS-CoV-2 (PCR) NOT DETECTED 11/14/20 11/14/20 11/14/20 Range/Units 18:40 18:40 17:51 WBC (4.8-10.8) x10^3/uL RBC (4.70-6.10) 10^6/uL Hgb (14.0-18.0) g/dL Hct (42.0-52.0) % MCV (80.0-94.0) fL MCH (27.0-31.0) pg MCHC (32.0-36.0) g/dL RDW (12.0-15.0) % Plt Count (130-450) 10^3/uL MPV (7.4-11.4) fL Neut # (Auto) (1.5-6.6) 10^3/uL Lymph # (Auto) (1.5-3.5) 10^3/uL [place] # (Auto) (0.0-1.0) 10^3/uL Eos # (Auto) (0.0-0.7) 10^3/uL Baso # (Auto) (0.0-0.1) 10^3/uL Absolute Nucleated RBC x10^3/uL Nucleated RBC % /100WBC Sodium 140 (135-145) mmol/L Potassium 3.8 (3.5-5.0) mmol/L Chloride 105 (101-111) mmol/L Carbon Dioxide 26 (21-32) mmol/L Anion Gap 9.0 (6-13) BUN 19 (6-20) mg/dL Creatinine 1.1 (0.6-1.2) mg/dL Estimated GFR (MDRD) 70 L (>89) Glucose 124 H (70-100) mg/dL Lactic Acid 3.0 H* (0.5-2.2) mmol/L Calcium 8.9 (8.5-10.3) mg/dL Magnesium (1.7-2.8) mg/dL Total Bilirubin 1.5 H (0.2-1.0) mg/dL AST 28 (10-42) IU/L ALT 27 (10-60) IU/L Alkaline Phosphatase 53 (42-121) IU/L Troponin I High Sens 3.5 (2.3-19.7) ng/L Total Protein 6.8 (6.7-8.2) g/dL Albumin 4.2 (3.2-5.5) g/dL Globulin 2.6 (2.1-4.2) g/dL Albumin/Globulin Ratio 1.6 (1.0-2.2) Lipase 33 (22-51) U/L Nasal Adenovirus (PCR) Nasal B. parapertussis DNA (PCR) Nasal Coronavir 229E PCR Nasal Coronavir HKU1 PCR Nasal Coronavir NL63 PCR Nasal Coronavir OC43 PCR Nasal Enterovir/Rhinovir PCR Nasal Influenza B PCR Nasal Influenza A PCR Nasal Parainfluen 1 PCR Nasal Parainfluen 2 PCR Nasal Parainfluen 3 PCR Nasal Parainfluen 4 PCR Nasal RSV (PCR) Nasal B.pertussis DNA PCR Nasal C.pneumoniae (PCR) Hema Human Metapneumo PCR Nasal M.pneumoniae (PCR) Nasal SARS-CoV-2 (PCR) 11/14/20 11/14/20 11/14/20 Range/Units 17:51 17:10 17:10 WBC 8.8 (4.8-10.8) x10^3/uL RBC 4.88 (4.70-6.10) 10^6/uL Hgb 15.1 (14.0-18.0) g/dL Hct 45.7 (42.0-52.0) % MCV 93.6 (80.0-94.0) fL MCH 30.9 (27.0-31.0) pg MCHC 33.0 (32.0-36.0) g/dL RDW 13.3 (12.0-15.0) % Plt Count 199 (130-450) 10^3/uL MPV 9.8 (7.4-11.4) fL Neut # (Auto) 7.5 H (1.5-6.6) 10^3/uL Lymph # (Auto) 0.8 L (1.5-3.5) 10^3/uL [place] # (Auto) 0.5 (0.0-1.0) 10^3/uL Eos # (Auto) 0.0 (0.0-0.7) 10^3/uL Baso # (Auto) 0.1 (0.0-0.1) 10^3/uL Absolute Nucleated RBC 0.00 x10^3/uL Nucleated RBC % 0.0 /100WBC Sodium 141 (135-145) mmol/L Potassium 4.0 (3.5-5.0) mmol/L Chloride 106 (101-111) mmol/L Carbon Dioxide 27 (21-32) mmol/L Anion Gap 8.0 (6-13) BUN 18 (6-20) mg/dL Creatinine 1.0 (0.6-1.2) mg/dL Estimated GFR (MDRD) 78 L (>89) Glucose 119 H (70-100) mg/dL Lactic Acid (0.5-2.2) mmol/L Calcium 9.1 (8.5-10.3) mg/dL Magnesium (1.7-2.8) mg/dL Total Bilirubin 1.4 H (0.2-1.0) mg/dL AST 29 (10-42) IU/L ALT 29 (10-60) IU/L Alkaline Phosphatase 55 (42-121) IU/L Troponin I High Sens 3.4 (2.3-19.7) ng/L Total Protein 6.9 (6.7-8.2) g/dL Albumin 4.5 (3.2-5.5) g/dL Globulin 2.4 (2.1-4.2) g/dL Albumin/Globulin Ratio 1.9 (1.0-2.2) Lipase 37 (22-51) U/L Nasal Adenovirus (PCR) Nasal B. parapertussis DNA (PCR) Nasal Coronavir 229E PCR Nasal Coronavir HKU1 PCR Nasal Coronavir NL63 PCR Nasal Coronavir OC43 PCR Nasal Enterovir/Rhinovir PCR Nasal Influenza B PCR Nasal Influenza A PCR Nasal Parainfluen 1 PCR Nasal Parainfluen 2 PCR Nasal Parainfluen 3 PCR Nasal Parainfluen 4 PCR Nasal RSV (PCR) Nasal B.pertussis DNA PCR Nasal C.pneumoniae (PCR) Hema Human Metapneumo PCR Nasal M.pneumoniae (PCR) Nasal SARS-CoV-2 (PCR) 11/14/20 Range/Units 17:10 WBC 9.2 (4.8-10.8) x10^3/uL RBC 5.08 (4.70-6.10) 10^6/uL Hgb 15.9 (14.0-18.0) g/dL Hct 47.5 (42.0-52.0) % MCV 93.5 (80.0-94.0) fL MCH 31.3 H (27.0-31.0) pg MCHC 33.5 (32.0-36.0) g/dL RDW 13.2 (12.0-15.0) % Plt Count 222 (130-450) 10^3/uL MPV 9.9 (7.4-11.4) fL Neut # (Auto) 7.8 H (1.5-6.6) 10^3/uL Lymph # (Auto) 0.9 L (1.5-3.5) 10^3/uL [place] # (Auto) 0.4 (0.0-1.0) 10^3/uL Eos # (Auto) 0.0 (0.0-0.7) 10^3/uL Baso # (Auto) 0.0 (0.0-0.1) 10^3/uL Absolute Nucleated RBC 0.00 x10^3/uL Nucleated RBC % 0.0 /100WBC Sodium (135-145) mmol/L Potassium (3.5-5.0) mmol/L Chloride (101-111) mmol/L Carbon Dioxide (21-32) mmol/L Anion Gap (6-13) BUN (6-20) mg/dL Creatinine (0.6-1.2) mg/dL Estimated GFR (MDRD) (>89) Glucose (70-100) mg/dL Lactic Acid (0.5-2.2) mmol/L Calcium (8.5-10.3) mg/dL Magnesium (1.7-2.8) mg/dL Total Bilirubin (0.2-1.0) mg/dL AST (10-42) IU/L ALT (10-60) IU/L Alkaline Phosphatase (42-121) IU/L Troponin I High Sens (2.3-19.7) ng/L Total Protein (6.7-8.2) g/dL Albumin (3.2-5.5) g/dL Globulin (2.1-4.2) g/dL Albumin/Globulin Ratio (1.0-2.2) Lipase (22-51) U/L Nasal Adenovirus (PCR) Nasal B. parapertussis DNA (PCR) Nasal Coronavir 229E PCR Nasal Coronavir HKU1 PCR Nasal Coronavir NL63 PCR Nasal Coronavir OC43 PCR Nasal Enterovir/Rhinovir PCR Nasal Influenza B PCR Nasal Influenza A PCR Nasal Parainfluen 1 PCR Nasal Parainfluen 2 PCR Nasal Parainfluen 3 PCR Nasal Parainfluen 4 PCR Nasal RSV (PCR) Nasal B.pertussis DNA PCR Nasal C.pneumoniae (PCR) Hema Human Metapneumo PCR Nasal M.pneumoniae (PCR) Nasal SARS-CoV-2 (PCR) - Diagnostic Imaging Diagnostic Imaging Results: positive: Final report reviewed ABX Reporting Has patient been on IV antibiotics over the past 48 hours?: Yes Sepsis Event Note (H) - Evaluation Current Stage of Sepsis: Resolved Possible source of Sepsis: positive: Pulmonary - Sepsis Criteria Sepsis Criteria: Recorded Temperature greater than 38.3C or Less than 36C, Recorded Heart Rate greater than 90 bpm, Metabolic: lactate > 2 mmol/L Assessment/Plan - Problem List (1) Sepsis Impression: Resolved. He met sepsis criteria given the low-grade fever, elevated lactic acid. This was secondary to the chemical/aspiration pneumonitis. Although there was low suspicion for bacterial infection, we continued empiric IV Zosyn given his low- grade fever and elevated lactic acid. We followed-up blood cultures. Daily CBC shows WBC going up. Laboratory Tests 11/14/20 11/15/20 17:51 04:25 WBC 8.8 14.2 H Plan is to continue abx and switch to po tomorrow. (2) Aspiration pneumonitis Conclusion/Plan: His presentation is more consistent with chemical pneumonitis rather than true bacterial aspiration pneumonia. He has a low-grade fever and his chest x-ray now reveals a left lower lobe infiltrate which was not present just a few hours ago. He likely aspirated gastric contents while he was in the left lateral decubitus position. However, anesthesia states the stomach was empty for the procedure. What would he aspirate? Although this is likely chemical pneumonitis, we continued him on empiric IV antibiotics with Zosyn given elevated lactic acid and his low-grade fever. His lactic acid is now normal. Plan is to change to po abx and he would like to go home very early am. (3) Pleuritic chest pain continues Conclusion/Plan: This is secondary to the aspiration pneumonitis. His EKG is nonischemic and his troponin is within normal limits. His D-dimer is also some 200 so low suspicion for pulmonary embolism. This is already improving and should resolve as the pneumonitis resolves. (4) Pyloric stenosis Conclusion/Plan: This was noted today during the endoscopy and was likely contributing to his feeling of early satiety and bloating. This was dilated by general surgery. We placed him on a clear liquid diet as tolerated and now he is advanced to regular diet. (5) Gastric polyps Conclusion/Plan: Endoscopy 11/14 revealed over 50 gastric polyps. All of the polyps greater than 1 cm were removed. Pathology will need to be followed up and he will need outpatient follow-up with general surgery or his primary care provider. He should be evaluated for familial polyposis. (6) Duodenal ulceration Conclusion/Plan: This was evident on EGD yestereday. He has been started on Protonix 40 mg daily. I have discussed with him the importance of avoiding NSAIDs.
[2020-11-15] MEDS ORDERED: AMOX/CLAV 875 MG/125 MG TABLET PO SCH (21:00)
--- NOTE | 2020-11-15 21:13 | Discharge Plan ---
Discharge Plan Problem Reviewed?: Yes Disposition: Home, Self Care Condition: Stable Prescriptions: Amox/Clav 875/125 [Augmentin 875/125 Tab] 1 tab PO BID 3 Days #6 tablet Diet: Regular Activity Restrictions: Activity as Tolerated Shower Restrictions: No Driving Restrictions: No Health Concerns: You were admitted to the hospital be because you had what is called aspiration/chemical pneumonitis. This likely occurred during your endoscopy and we suspect that some gastric secretions went into your lung and this irritated your left lung. This is why you had chest pain and felt short of breath. We did treat you with antibiotics although most often, this is not actually a bacterial infection. You have since improved and now you are stable for discharge. Plan of Treatment: Please continue to take the Prilosec you were previously taking once a day as the endoscopy did reveal a small ulcer in your duodenum. It is recommended that you avoid NSAIDs like ibuprofen, Naproxen, Aleve as this can contribute to development of ulcers. Tylenol is okay to take as needed for pain. Please take Augmentin twice a day. This is an antibiotic for the pneumonitis. You will only need this for 3 more days to complete 5 days of therapy. Please make sure to follow-up with the surgeon, Dr. Cevallos, or your primary car e provider to follow-up on the biopsy results from the numerous gastric polyps you had. Assessment: The patient expressed understanding of the treatment plan. Additional Instructions or Follow Up instructions: Follow-up next Friday as scheduled for results from the biopsy of your gastric polyps. Please return to the emergency department if you develop fevers, shortness of breath, chest pain. No Smoking: If you smoke, Please STOP! Call for help. Follow-up with: CHANEL GARCES ARNP [Primary Care Provider] -
[2020-11-16] MEDS: SODIUM CHLORIDE FLUSH 0.9% 10 ML SYRINGE IVP SCH (00:04)
[2020-11-16] MEDS: ACETAMINOPHEN 325 MG TABLET PO PRN (00:55)
[2020-11-16 02:57] LABS: BASOPHILS % (AUTO) 0.4 %; EOSINOPHILS # (AUTO) 0.6 10^3/uL (0.0-0.7); EOSINOPHILS % (AUTO) 6.1 %; HCT - HEMATOCRIT 38.8 % (42.0-52.0); HGB - HEMOGLOBIN 13.4 g/dL (14.0-18.0); MEAN CORPUSCULAR HEMOGLOBIN 31.9 pg (27.0-31.0); MEAN CORPUSCULAR HGB CONC 34.5 g/dL (32.0-36.0); MEAN CORPUSCULAR VOLUME 92.4 fL (80.0-94.0); MEAN PLATELET VOLUME 9.9 fL (7.4-11.4); MONOCYTES # (AUTO) 0.6 10^3/uL (0.0-1.0); MONOCYTES % (AUTO) 6.7 %; NEUTROPHILS # (AUTO) 7.2 10^3/uL (1.5-6.6); NEUTROPHILS % (AUTO) 76.5 %; PLT - PLATELET COUNT 177 10^3/uL (130-450); RED CELL DISTRIBUTION WIDTH 13.1 % (12.0-15.0); WHITE BLOOD COUNT 9.5 x10^3/uL (4.8-10.8)
[2020-11-16 03:05] LABS: CALCIUM 8.5 mg/dL (8.5-10.3); CREATININE 0.9 mg/dL (0.6-1.2); POTASSIUM 3.8 mmol/L (3.5-5.0)
[2020-11-16 04:25] VITALS: BP 130/89
--- NOTE | 2020-11-16 07:11 | DISCHARGE SUMMARY ---
Discharge Summary Admit Date: 11/14/20 Discharge Date: 11/16/20 Discharging Provider: Pavel Bailey Primary Care Provider: Shoshana Cox Code Status: Attempt Resuscitation Condition at Discharge: Stable Discharge Disposition: 01 Home, Self Care - DIAGNOSES Admission Diagnoses: Sepsis Aspiration pneumonitis Pleuritic chest pain Pyloric stenosis Gastric polyps Duodenal ulceration Discharge Diagnoses with Status of Each Condition: Sepsis - resolved. Aspiration pneumonitis - improved. Pleuritic chest pain - improved. Pyloric stenosis - resolved. Gastric polyps - stable. Duodenal ulceration - stable. - HPI History of Present Illness: This is a pleasant 50-year-old male with a past medical history significant for chronic back pain who presents today complaining of chills and shakes. He states that he woke up in his usual state of health this morning. He had an outpatient endoscopy and colonoscopy this morning for bloating that has been present for many years. After both of these procedures, he developed chest pain while in the PACU and a chest x-ray was obtained as well as labs which were unremarkable. He was discharged home but states that after he went home, he developed severe shakes and chills as well as ongoing chest pain and so he came back to the emergency department. He tells me he felt short of breath after the procedure but currently feels much improved. He has no cough. He still has a little left-sided chest pain but it is only present with deep inspiration. Reports no nausea or vomiting. No abdominal pain. He reports he takes no medication except for [id number] lidocaine for back pain and occasional ibuprofen. In the emergency department, he was found to be febrile with a temperature of 38.1 C. His heart rate was in the 110s. He was normotensive. He was tachypneic with respiratory rate in the mid 20s but he was saturating 98% on r oom air. Labs were significant for normal white count. D-dimer is less than 200. His lactic acid was elevated at 3.0. Chest x-ray revealed a left lower lobe infiltrate which was not present on prior chest x-ray from earlier today. He also underwent a CT of the chest as well as abdomen and pelvis which also showed the left lower lobe infiltrate and no acute abnormalities in the abdomen. He received a liter of IV fluids and Zosyn IV in the emergency department. Given the above findings, medicine was consulted for admission. - HOSPITAL COURSE Hospital Course: He was admitted to the floor for sepsis secondary to aspiration/chemical pneumonitis. Although there was low suspicion for a bacterial infection, he was started empirically on Zosyn IV given his lactic acid was elevated at 3.0. Shortly after admission, he had improvement in his symptoms. His chest pain has significantly improved and was only present with deep inspiration. He was never hypoxic during this hospitalization. He did spike another low-grade fever shortly after admission and so he remained on IV antibiotics for another day. His white count had also increased to 14,000. Since that low-grade fever, he has been afebrile with a T-max of 37.8 C. He had been receiving Tylenol intermittently for a mild headache which could have potentially been masking fevers. The following day his white count returned to normal. His blood cultures have been negative to date. He felt like he was ready to go home and he had an appointment today with another provider that he had been waiting on for nearly a year and preferred to be discharged. Given he had near resolution of his symptoms and was not dyspneic at rest or with exertion, he was discharged home in stable condition. I did prescribe him Augmentin to take twice daily for 3 more days to complete 5 days of therapy. I did ask him to return to the emergency department if he develops any fevers, shortness of breath, chest pain. He was agreeable to this. I also asked him to avoid NSAIDs given he had a small ulceration in his duodenum. He will continue to take Prilosec. - ALLERGIES Allergies/Adverse Reactions: Allergies Allergy/AdvReac Type Severity Reaction Status Date / Time No Known Drug Allergies Allergy Verified 11/14/20 16:48 - MEDICATIONS Home Medications: Ambulatory Orders Medication Instructions Recorded Confirmed Acetaminophen [Tylenol] 650 mg PO Q6H PRN 11/13/20 11/15/20 Amox/Clav 875/125 [Augmentin 1 tab PO BID 3 Days #6 tablet 11/15/20 875/125 Tab] Pantoprazole [Protonix] 40 mg PO QDAC tablet 11/15/20 Valacyclovir HCl [Valtrex] 500 mg PO DAILY 11/15/20 11/15/20 - PHYSICAL EXAM AT DISCHARGE General Appearance: positive: No acute distress, Alert Eyes Bilateral: positive: Normal inspection, Conjunctivae nml ENT: positive: ENT inspection nml Neck: positive: Nml inspection Respiratory: positive: No respiratory distress, Breath sounds nml. negative: Wheezes, Rales, Rhonchi Cardiovascular: positive: Regular rate & rhythm, No murmur. negative: Tachycardia Abdomen: positive: Non-tender, No distention. negative: Tenderness Skin: positive: Warm, Dry Extremities: positive: No pedal edema Neurologic/Psychiatric: positive: Oriented x3, Motor nml. negative: Disoriented to person, Disoriented to place, Disoriented to time Physical Exam Other/Comments: Vital Signs - 24 hr 11/15/20 11/15/20 11/15/20 08:54 12:22 15:59 Temperature 38.0 C H 37.1 C 37.6 C Heart Rate [ 84 84 91 Brachial] Respiratory 18 20 20 Rate Blood Pressure 103/68 132/90 H 126/91 H [Left Brachial artery] Blood Pressure [Right Brachial artery] O2 Saturation 97 97 99 11/15/20 11/16/20 11/16/20 20:44 00:08 04:23 Temperature 37.4 C 37.8 C 37.0 C Heart Rate [ 93 88 79 Brachial] Respiratory 20 18 18 Rate Blood Pressure 130/79 135/84 H [Left Brachial artery] Blood Pressure 130/89 H [Right Brachial artery] O2 Saturation 100 97 97 Oxygen O2 Source Room air - LABS Result Diagrams: 11/16/20 02:55 11/16/20 02:55 - DIAGNOSTIC IMAGING Diagnostic Imaging Results: Final report reviewed - SEPSIS Current Stage of Sepsis: Resolved Possible source of Sepsis: Pulmonary Sepsis Criteria: Recorded Temperature greater than 38.3C or Less than 36C, Recorded Heart Rate greater than 90 bpm, Metabolic: lactate > 2 mmol/L - FOLLOW UP Follow Up: He has an appointment next week with general surgery for follow-up of the biopsy results from his endoscopy. - TIME SPENT Time Spent in Discharge (Minutes): 32
== END 2020-11-16 04:45 | disposition home or self-care (01) | DRG 862 ==
LOC: ED 16:34 → MS2 20:28
PROVIDERS: ADMIT Internal Medicine; ATTEND Internal Medicine
PROC: 0DB98ZX Excision of Duodenum, Via Natural or Artificial Opening Endoscopic, Diagnostic (ICD-10-PCS; principal; 2020-11-14)
PROC: 0DBB8ZX Excision of Ileum, Via Natural or Artificial Opening Endoscopic, Diagnostic (ICD-10-PCS; 2020-11-14)
PROC: 0DBE8ZX Excision of Large Intestine, Via Natural or Artificial Opening Endoscopic, Diagnostic (ICD-10-PCS; 2020-11-14)
PROC: 0DBP8ZX Excision of Rectum, Via Natural or Artificial Opening Endoscopic, Diagnostic (ICD-10-PCS; 2020-11-14)
DX: T81.44XA Sepsis following a procedure, initial encounter (principal); J69.0 Pneumonitis due to inhalation of food and vomit; A41.9 Sepsis, unspecified organism; K31.1 Adult hypertrophic pyloric stenosis; Y83.8 Other surgical procedures as the cause of abnormal reaction of the patient, or of later complication, without mention of misadventure at the time of the procedure; Y92.234 Operating room of hospital as the place of occurrence of the external cause; Z12.11 Encounter for screening for malignant neoplasm of colon; R07.9 Chest pain, unspecified; K26.9 Duodenal ulcer, unspecified as acute or chronic, without hemorrhage or perforation; K29.60 Other gastritis without bleeding; K31.7 Polyp of stomach and duodenum; K21.9 Gastro-esophageal reflux disease without esophagitis; K64.8 Other hemorrhoids; G89.29 Other chronic pain; M54.9 Dorsalgia, unspecified; E66.3 Overweight; Z68.29 Body mass index [BMI] 29.0-29.9, adult; Z86.010 Personal history of colon polyps; Z92.83 Personal history of failed moderate sedation; Z79.899 Other long term (current) drug therapy
CPT/HCPCS: 0202U; 36415; 43239; 43245; 43251; 45380; 71045; 71260; 74177; 80048; 80053; 82550; 82553; 83605; 83690; 83735; 84484; 85025; 85027; 87040; 93005; 96361; 96365; 99284; 99285; A9270; J1650; J7120; Q9967

== ENCOUNTER 2020-11-20 14:44 | Outpatient (CLI) | payer OTHER ==
--- NOTE | 2020-11-20 16:41 | XRAY Report ---
PROCEDURE: Chest 2 View X-Ray INDICATIONS: ASPIRATION PNEUMONITIS TECHNIQUE: 2 view(s) of the chest. COMPARISON: November 14, 2020 FINDINGS: Surgical changes and devices: None. Lungs and pleura: No pleural effusions or pneumothorax. Lungs are clear. Mediastinum: Mediastinal contours are normal. Heart size is normal. Bones and chest wall: No suspicious bony abnormalities. Soft tissues appear unremarkable. IMPRESSION: No acute cardiopulmonary findings. Prior left base infiltrate has resolved in the interval Reviewed by: Lucas Rao MD on 11/20/2020 3:40 PM [facility] Approved by: Lucas Rao MD on 11/20/2020 3:40 PM [facility] Station ID: [id number]
== END 2020-11-20 14:45 | disposition home or self-care (01) ==
LOC: DI 14:44
PROVIDERS: ATTEND Surgery
DX: J69.0 Pneumonitis due to inhalation of food and vomit (principal)
CPT/HCPCS: 36415; 80053; 85025

== ENCOUNTER 2020-11-20 14:59 | Outpatient (CLI) | payer OTHER ==
[2020-11-20 15:13] LABS: BASOPHILS # (AUTO) 0.1 10^3/uL (0.0-0.1); BASOPHILS % (AUTO) 0.6 %; EOSINOPHILS # (AUTO) 0.4 10^3/uL (0.0-0.7); EOSINOPHILS % (AUTO) 4.5 %; HCT - HEMATOCRIT 43.9 % (42.0-52.0); HGB - HEMOGLOBIN 15.2 g/dL (14.0-18.0); LYMPHOCYTES # (AUTO) 2.1 10^3/uL (1.5-3.5); LYMPHOCYTES % (AUTO) 21.4 %; MEAN CORPUSCULAR HGB CONC 34.6 g/dL (32.0-36.0); MEAN CORPUSCULAR VOLUME 92.4 fL (80.0-94.0); MEAN PLATELET VOLUME 9.3 fL (7.4-11.4); MONOCYTES % (AUTO) 9.7 %; NEUTROPHILS # (AUTO) 6.2 10^3/uL (1.5-6.6); NEUTROPHILS % (AUTO) 63.3 %; PLT - PLATELET COUNT 260 10^3/uL (130-450); RED BLOOD COUNT 4.75 10^6/uL (4.70-6.10); RED CELL DISTRIBUTION WIDTH 12.9 % (12.0-15.0); WHITE BLOOD COUNT 9.8 x10^3/uL (4.8-10.8)
[2020-11-20 15:26] LABS: ALBUMIN 4.5 g/dL (3.2-5.5); ALBUMIN/GLOBULIN RATIO 1.5 (1.0-2.2); BILIRUBIN,TOTAL 0.6 mg/dL (0.2-1.0); CALCIUM 9.2 mg/dL (8.5-10.3); CREATININE 0.9 mg/dL (0.6-1.2); POTASSIUM 4.2 mmol/L (3.5-5.0); TOTAL PROTEIN 7.6 g/dL (6.7-8.2)
== END 2020-11-20 15:00 | disposition home or self-care (01) ==
LOC: LAB 14:59
PROVIDERS: ATTEND Surgery
DX: J69.0 Pneumonitis due to inhalation of food and vomit (principal)
CPT/HCPCS: 36415; 80053; 85025

== ENCOUNTER 2021-11-07 08:12 | Outpatient (CLI) | payer OTHER ==
--- NOTE | 2021-11-07 17:11 | MRI Report ---
PROCEDURE: Cervical Spine W/O INDICATIONS: CERVICALGIA TECHNIQUE: Noncontrast sagittal T1 spin echo and T2 fast spin echo, sagittal STIR, foraminal oblique sagittal T2 fast spin echo, and axial gradient echo or T2 fast spin echo through the cervical spine. COMPARISON: None. FINDINGS: Image quality: Excellent. Alignment and Curvature: There is normal bony alignment. Bone Marrow: Mild reactive endplate changes noted adjacent to the C4-C5, C5-C6 and C6-7 C7 disc. Spinal Cord: Visualized spinal cord has normal size and signal. No cerebellar tonsillar herniation. Paraspinous Soft Tissues: No paravertebral masses. Prevertebral soft tissues are normal in thicknes s. C2-C3: Loss of disc signal. Mild, diffuse disc bulge. Moderate right and mild left facet hypertrophy . No central stenosis. Moderate right neural foraminal narrowing. No neural compression. C3-C4: Loss of disc signal. Mild, diffuse disc bulge. Mild bilateral facet hypertrophy. No central stenosis. Mild bilateral neural foraminal narrowing. No neural compression. C4-C5: Loss of disc signal and height. Mild to moderate diffuse disc bulge. Moderate right and sever e left facet hypertrophy. Mild narrowing of the central canal. Moderate right and severe left neural foraminal narrowing with compression of the exiting left C5 nerve root. C5-C6: Loss of disc signal and height. Mild, diffuse disc bulge. Mild bilateral facet hypertrophy. M ild bilateral uncovertebral joint hypertrophy. No central stenosis. Moderate bilateral neural foramin al narrowing. No neural compression. C6-C7: Loss of disc signal and height. Mild to moderate diffuse disc bulge. Mild bilateral facet hyp ertrophy. Mild bilateral uncovertebral joint hypertrophy. Mild narrowing of the central canal. Modera te bilateral neural foraminal narrowing. No neural compression. C7-T1: Loss of disc signal. Mild, diffuse disc bulge. No central stenosis. No neural foraminal narro wing. No neural compression IMPRESSION: 1. Multilevel degenerative disc disease. 2. Multilevel facet and uncovertebral arthropathy. 3. No severe central canal narrowing. 4. Severe left C4-C5 neural foraminal narrowing with compression of the exiting left C5 nerve root. Reviewed by: Ivis Valle MD, PhD on 11/07/2021 5:09 PM PDT Approved by: Ivis Valle MD, PhD on 11/07/2021 5:09 PM PDT Station ID: [id number]
== END 2021-11-07 08:13 | disposition home or self-care (01) ==
LOC: DI 08:12
PROVIDERS: ATTEND Nurse Practitioner Family
DX: M50.11 Cervical disc disorder with radiculopathy, high cervical region (principal); M47.22 Other spondylosis with radiculopathy, cervical region

== ENCOUNTER 2023-06-23 08:45 | Outpatient (CLI) | payer OTHER ==
--- NOTE | 2023-06-23 10:18 | XRAY Report ---
PROCEDURE: Chest 2 View X-Ray INDICATIONS: PRODUCTIVE COUGH TECHNIQUE: 2 views of the chest were acquired. COMPARISON: . FINDINGS: Surgical changes and devices: None. Lungs and pleura: No pleural effusions or pneumothorax. Lungs are clear. Mediastinum: Mediastinal contours appear normal. Heart size is normal. Bones and chest wall: No suspicious bony lesions. Overlying soft tissues appear unremarkable. IMPRESSION: No acute cardiopulmonary process. Reviewed by: Ang Shook MD on 06/23/2023 10:17 AM [facility] Approved by: Ang Shook MD on 06/23/2023 10:17 AM [facility] Station ID: [id number]
== END 2023-06-23 09:00 | disposition home or self-care (01) ==
LOC: DI.N 08:45
PROVIDERS: ATTEND Nurse Practitioner
DX: R05.9 Cough, unspecified (principal)